=== PATIENT | female | born 1975 | race African-American/Black ===

== ENCOUNTER → 2019-02-01 | Outpatient (CLI) | payer BC ==
--- NOTE | 2019-02-01 10:09 | RAD ---
Cervical spine, 3 views, 02/01/2019: HISTORY: Neck pain degenerative disease The cervical vertebral heights are well-maintained. No fracture or subluxation is evident. The disc spaces are fairly well preserved. There is mild marginal spurring at C4-5 and C5-6. No prevertebral soft tissue swelling is seen. IMPRESSION: 1. Mild degenerative change. 2. No acute bony abnormality is detected. Electronically signed by: Oscar Coronado MD (02/01/2019 10:07 AM) [facility]
== END | disposition home or self-care (01) ==
LOC: RAD 08:10
PROVIDERS: ATTEND Internal Medicine
DX: M47.812 Spondylosis without myelopathy or radiculopathy, cervical region (principal); M46.02 Spinal enthesopathy, cervical region
CPT/HCPCS: 72040